=== PATIENT | female | born 1995 | race Caucasian/White ===

== ENCOUNTER → 2017-11-14 | Outpatient (CLI) | payer MEDICAID | LOC: HPND 13:20 | PROVIDERS: ATTEND Family Medicine | DX: O26.842 Uterine size-date discrepancy, second trimester (principal) | CPT/HCPCS: 76805 ==

== ENCOUNTER → 2017-12-19 | Outpatient (CLI) | payer MEDICAID | LOC: HPND 08:16 | PROVIDERS: ATTEND Family Medicine | DX: O26.842 Uterine size-date discrepancy, second trimester (principal); Z36.3 Encounter for antenatal screening for malformations | CPT/HCPCS: 76816 ==

== ENCOUNTER 2018-04-14 22:02 | Inpatient (IN) ==
[2018-04-14] MEDS ORDERED: Oxytocin 30 Units/500ml Premix 30 UNITS/500 ML BAG IV.SIG ONE (22:29)
[2018-04-14] MEDS ORDERED: Sodium Chlor 0.9% Inj 500 ML IV.SIG PRN (22:29)
[2018-04-14] MEDS ORDERED: Naloxone Inj 0.4 MG/ML Vial IV.PUSH PRN (22:29)
[2018-04-14] MEDS ORDERED: fentaNYL Citrate Inj 100 MCG/2 ML Ampul IV.PUSH PRN ×2 (22:29)
[2018-04-14] MEDS ORDERED: Sod Chloride 0.9% Inj 1,000 ML IV.CONT PRN (22:29)
[2018-04-14] MEDS ORDERED: Citric Acid/Sodium Citrate Liq 30 ML UDC PO SCH (22:30)
--- NOTE | 2018-04-14 22:51 | P.HPOB ---
History of Present Illness Primary Care Physician: NOT REQUIRED History of Present Illness: Patient is a 22-year-old at 36/3 presenting today for loss of fluids. She reports approximately 2 hours ago she went to sit on her bed, she had a large a clear gush of fluid from her vagina. Notes occasional intermittent mild abdominal pain every few minutes. She states she has had normal movement. Denies nausea, vomiting, fever, chills, abdominal pain, shortness of breath, changes in vision, headache, lightheadedness, dizziness, dysuria, hematuria, frequency, change in urine color/smell, change in bowel habits. No bloody discharge, abnormally colored or malodorous discharge. No other complaints today. Review of Systems Constitutional: Denies chills, Denies fatigue, Denies fever(s) Eyes: Denies blurry vision, Denies change in vision, Denies floaters Ears, Nose, Mouth, and Throat: Denies dizziness, Denies nose pain Cardiovascular: Reports leg swelling, Denies chest pain, Denies shortness of breath Respiratory: Denies chest congestion, Denies cough, Denies coughing up blood, Denies wheezing Gastrointestinal: Reports cramping, Denies black, tarry stools, Denies change in bowel habits, Denies change in stools, Denies loose stools, Denies vomiting Musculoskeletal: Reports back pain, Denies body aches, Denies joint pain, Denies muscle weakness Skin/Breast: Denies dry skin, Denies skin ulcer Neurologic: Denies abnormal movements, Denies abnormal speech, Denies dizziness , Denies fainting, Denies frequent falls, Denies numbness, Denies tingling Psychiatric: Denies anxiety, Denies confusion Endocrine: Denies fatigue, Denies flushing Hematologic/Lymphatic: Denies easy bleeding, Denies easy bruising Medications and Allergies Allergies Allergy/AdvReac Type Severity Reaction Status Date / Time Penicillins Allergy Hives Verified 04/14/18 22:29 Home Medications Medication Instructions Recorded Confirmed Type vit-iron fum-folic ac 1 tab PO DAILY 04/14/18 04/14/18 History [ Vitamin] Exam Vital signs: Vital Signs 04/14/18 22:26 04/14/18 22:35 04/14/18 22:40 Temperature Pulse Rate 96 H 95 H 94 H Respiratory Rate 18 Blood Pressure 121/75 04/14/18 22:42 Temperature 97.9 F Pulse Rate Respiratory Rate Blood Pressure Narrative: GENERAL: Well-nourished, well-developed patient. SKIN: Warm and dry. HEAD: Normocephalic and atraumatic. EYES: No scleral icterus. No injection or drainage. ENT: No nasal drainage noted. Mucous membranes pink. Airway patent. NECK: Supple, trachea midline. No JVD. CARDIOVASCULAR: Regular rate and rhythm without murmurs, gallops, or rubs. RESPIRATORY: Breath sounds equal bilaterally. No accessory muscle use. ABDOMEN/GI: Abdomen soft, non-tender, bowel sounds present, no rebound, no guarding Gravid to 36 weeks size Fundal Height: 36 cm GENITOURINARY: External Genitalia: intact and normal in appearance Dilatation: 2 Effacement: 60 Station: -2 Presentation: vertex Membranes: ruptured Uterine Contractions: ~5 minutes FHT's: Category: 1 Baseline: 140 Reactive: Yes Variability: Moderate Decels: None EXTREMITIES: No cyanosis or edema. BACK: Nontender without obvious deformity. No CVA tenderness. NEUROLOGICAL: Awake and alert. Motor and sensory grossly within normal limits. Five out of 5 muscle strength in all muscle groups. Normal speech. Results - Labs CBC & Chem 7: 04/14/18 23:10 Caprini VTE Risk Assessment Caprini VTE Risk Assessment: No/Low Risk (score <= 1) Caprini Risk Assessment Model: Point Value = 1 Point Value = 2 Point Value = 3 Point Value = 5 Age 41-60 Minor surgery BMI > 25 kg/m2 Swollen legs Varicose veins or History of unexplained or recurrent spontaneous Oral contraceptives or hormone replacement Sepsis (< 1 month) Serious lung disease, including pneumonia (< 1 month) Abnormal pulmonary function Acute myocardial infarction Congestive heart failure (< 1 month) History of inflammatory bowel disease Medical patient at bed rest Age 61-74 Arthroscopic surgery Major open surgery (> 45 min) Laparoscopic surgery (> 45 min) Malignancy Confined to bed (> 72 hours) Immobilizing plaster cast Central venous access Age >= 75 History of VTE Family history of VTE Factor V Leiden Prothrombin [id number] Lupus anticoagulant Anticardiolipin antibodies Elevated serum homocysteine Heparin-induced thrombocytopenia Other congenital or acquired thrombophilia Stroke (< 1 month) Elective arthroplasty Hip, pelvis, or leg fracture Acute spinal cord injury (< 1 month) Prophylaxis Regimen: Total Risk Factor Score Risk Level Prophylaxis Regimen 0-1 Low Early ambulation 2 Moderate Order ONE of the following: *Sequential Compression Device (SCD) *Heparin 5000 units SQ BID 3-4 Higher Order ONE of the following medications: *Heparin 5000 units SQ TID *Enoxaparin/Lovenox 40 mg SQ daily (WT < 150 kg, CrCl > 30 mL/min) *Enoxaparin/Lovenox 30 mg SQ daily (WT < 150 kg, CrCl > 10-29 mL/min) *Enoxaparin/Lovenox 30 mg SQ BID (WT < 150 kg, CrCl > 30 mL/min) AND/OR *Sequential Compression Device (SCD) 5 or more Highest Order ONE of the following medications: *Heparin 5000 units SQ TID (Preferred with Epidurals) *Enoxaparin/Lovenox 40 mg SQ daily (WT < 150 kg, CrCl > 30 mL/min) *Enoxaparin/Lovenox 30 mg SQ daily (WT < 150 kg, CrCl > 10-29 mL/min) *Enoxaparin/Lovenox 30 mg SQ BID (WT < 150 kg, CrCl > 30 mL/min) AND *Sequential Compression Device (SCD) Assessment and Plan - Diagnosis (1) Premature rupture of membranes (PROM), onset of labor within 24 hours, antepartum, Code(s): O42.019 - premature rupture of membranes, onset of labor within 24 hours of rupture, unspecified trimester Status: Acute (2) 36 weeks gestation of Code(s): Z3A.36 - 36 weeks gestation of Status: Acute - Plan 22-year-old at 36/3 presenting with ruptured membranes. -Follow up GBS status, possible antibiotics - tracing category 1, reassuring -Expectant management -Consider Pitocin augmentation d/w Dr. Stevenson
[2018-04-14 23:53] LABS: Baso % (Auto) 0.4 % (0.0-2.0); Eos # (Auto) 0.2 th/mm3 (0.0-0.4); Eos % (Auto) 1.3 % (0.0-4.0); Hematocrit 27.4 % (35.0-46.0); Hemoglobin 9.5 gm/dL (11.6-15.3); Lymph % (Auto) 15.7 % (9.0-44.0); Mean Corpuscular HGB Conc 34.8 % (32.0-36.0); Mean Corpuscular Hemoglobin 31.6 pg (27.0-34.0); Mean Corpuscular Volume 90.8 fL (80.0-100.0); Mean Platelet Volume 8.5 fL (7.0-11.0); Mono # (Auto) 1.2 th/mm3 (0.0-0.9); Mono % (Auto) 9.4 % (0.0-8.0); Neut # (Auto) 9.4 th/mm3 (1.8-7.7); Neut % (Auto) 73.2 % (16.0-70.0); Platelet Count 236 th/mm3 (150-450); Red Blood Count 3.02 mil/mm3 (4.00-5.30); Red Cell Distribution Width 13.5 % (11.6-17.2); White Blood Count 12.8 th/mm3 (4.0-11.0)
[2018-04-15] LABS: Amorphous Sediment,Urine Rare /hpf; Bilirubin,Urine Negative (Negative); Calcium Oxalate Crystals,Urine Rare /hpf; Clarity,Urine Hazy (Clear); Color,Urine Yellow (Yellw/Straw); Glucose,Urine (UA) 50 mg/dL (Negative); Leukocyte Esterase,Urine Negative (Negative); Mucus,Urine Few /lpf (Occasional); Nitrite,Urine Negative (Negative); Specific Gravity,Urine 1.017 (1.002-1.035); Squamous Epithelial Cell,Urine 1 /hpf (0-5)
[2018-04-15 00:03] LABS: Amphetamine Urine With Conf Neg (Neg); Benzodiazepine Urine With Conf Neg (Neg)
[2018-04-15] MEDS ORDERED: Oxytocin 30 Units/500ml Premix 30 UNITS/500 ML BAG IV.SIG PRN (03:22)
--- NOTE | 2018-04-15 03:28 | P.OBLABOR ---
Subjective Interval history: Patient resting comfortably. Reports increase in frequency and intensity of contractions. Occurring every 4-6 minutes. No acute complaints Objective Vital Signs: Vital Signs - 8 hr 04/14/18 22:26 04/14/18 22:35 04/14/18 22:40 Temperature Pulse Rate 96 H 95 H 94 H Respiratory Rate 18 Blood Pressure 121/75 04/14/18 22:42 04/14/18 22:50 04/14/18 23:00 Temperature 97.9 F Pulse Rate 102 H 96 H Respiratory Rate Blood Pressure 04/14/18 23:10 04/14/18 23:30 04/14/18 23:45 Temperature Pulse Rate 90 89 86 Respiratory Rate Blood Pressure 04/14/18 23:55 04/15/18 00:00 04/15/18 00:10 Temperature Pulse Rate 86 88 87 Respiratory Rate Blood Pressure 04/15/18 00:25 04/15/18 00:30 04/15/18 01:00 Temperature Pulse Rate 94 H 84 86 Respiratory Rate Blood Pressure 04/15/18 01:05 04/15/18 01:12 04/15/18 01:13 Temperature 98.0 F Pulse Rate 89 81 Respiratory Rate 16 Blood Pressure 125/66 04/15/18 01:35 04/15/18 01:40 04/15/18 01:45 Temperature Pulse Rate 80 91 H 82 Respiratory Rate Blood Pressure 04/15/18 01:50 04/15/18 02:00 04/15/18 02:20 Temperature Pulse Rate 90 84 80 Respiratory Rate Blood Pressure 04/15/18 02:25 04/15/18 02:30 04/15/18 02:35 Temperature Pulse Rate 85 99 H 82 Respiratory Rate Blood Pressure 04/15/18 02:45 04/15/18 03:00 04/15/18 03:05 Temperature Pulse Rate 90 85 83 Respiratory Rate Blood Pressure 04/15/18 03:10 Temperature Pulse Rate 87 Respiratory Rate Blood Pressure Objective: Pelvic Exam: Cervix: Posterior Dilatation: 2 Effacement: 70 Station: -2 Presentation: vertex Membranes: ruptured Uterine Contractions: regular 4-6 minutes FHT's: Category: 1 Baseline: 135 Reactive: yes Variability: moderate Decels: none Assessment and Plan - Diagnosis (1) Premature rupture of membranes (PROM), onset of labor within 24 hours, antepartum, Code(s): O42.019 - premature rupture of membranes, onset of labor within 24 hours of rupture, unspecified trimester Status: Acute (2) 36 weeks gestation of Code(s): Z3A.36 - 36 weeks gestation of Status: Acute - Plan 22-year-old at 36/3 presenting with ruptured membranes. GBS negative - tracing category 1, reassuring -Expectant management -Discussed Pitocin augmentation, patient wishes to wait for now, however is agreeable to augmentation if no significant change is made at the next check
[2018-04-15] MEDS ORDERED: fentaNYL 2MCG-Bupiv 0.125% Epi 150 ML EPIDURAL ONE (06:01)
[2018-04-15] MEDS ORDERED: Bupivacaine PF 0.25% Inj 10 ML Vial ONE (06:13)
[2018-04-15] MEDS ORDERED: Lidocaaine 1.5%/Epinephrine 1:200,000 PF Inj 5 ML Amp ONE (06:14)
[2018-04-15] MEDS ORDERED: Lidocaine PF 1% Inj 5 ML Vial ONE (06:14)
--- NOTE | 2018-04-15 06:31 | P.OBLABOR ---
Objective Vital Signs: Vital Signs - 8 hr 04/14/18 22:35 04/14/18 22:40 04/14/18 22:42 Temperature 97.9 F Pulse Rate 95 H 94 H Respiratory Rate Blood Pressure 04/14/18 22:50 04/14/18 23:00 04/14/18 23:10 Temperature Pulse Rate 102 H 96 H 90 Respiratory Rate Blood Pressure 04/14/18 23:30 04/14/18 23:45 04/14/18 23:55 Temperature Pulse Rate 89 86 86 Respiratory Rate Blood Pressure 04/15/18 00:00 04/15/18 00:10 04/15/18 00:25 Temperature Pulse Rate 88 87 94 H Respiratory Rate Blood Pressure 04/15/18 00:30 04/15/18 01:00 04/15/18 01:05 Temperature Pulse Rate 84 86 89 Respiratory Rate Blood Pressure 04/15/18 01:12 04/15/18 01:13 04/15/18 01:35 Temperature 98.0 F Pulse Rate 81 80 Respiratory Rate 16 Blood Pressure 125/66 04/15/18 01:40 04/15/18 01:45 04/15/18 01:50 Temperature Pulse Rate 91 H 82 90 Respiratory Rate Blood Pressure 04/15/18 02:00 04/15/18 02:20 04/15/18 02:25 Temperature Pulse Rate 84 80 85 Respiratory Rate Blood Pressure 04/15/18 02:30 04/15/18 02:35 04/15/18 02:45 Temperature Pulse Rate 99 H 82 90 Respiratory Rate Blood Pressure 04/15/18 03:00 04/15/18 03:05 04/15/18 03:10 Temperature Pulse Rate 85 83 87 Respiratory Rate Blood Pressure 04/15/18 03:25 04/15/18 03:30 04/15/18 03:35 Temperature Pulse Rate 99 H 80 81 Respiratory Rate Blood Pressure 04/15/18 03:40 04/15/18 03:46 04/15/18 03:50 Temperature 98.9 F Pulse Rate 85 81 84 Respiratory Rate 18 Blood Pressure 121/79 04/15/18 04:00 04/15/18 04:05 04/15/18 04:10 Temperature Pulse Rate 89 79 79 Respiratory Rate Blood Pressure 04/15/18 04:20 04/15/18 04:25 04/15/18 04:50 Temperature Pulse Rate 83 83 97 H Respiratory Rate Blood Pressure 04/15/18 05:00 04/15/18 05:02 04/15/18 05:05 Temperature Pulse Rate 82 78 81 Respiratory Rate Blood Pressure 128/62 04/15/18 05:10 04/15/18 05:20 04/15/18 05:35 Temperature Pulse Rate 87 82 79 Respiratory Rate Blood Pressure 04/15/18 05:55 04/15/18 06:00 04/15/18 06:10 Temperature Pulse Rate 80 86 85 Respiratory Rate Blood Pressure 04/15/18 06:15 04/15/18 06:18 04/15/18 06:20 Temperature 98.8 F Pulse Rate 100 H 96 H Respiratory Rate 16 Blood Pressure 125/68 04/15/18 06:21 04/15/18 06:25 Temperature Pulse Rate 97 H 93 H Respiratory Rate Blood Pressure 132/66 121/68 Objective: Pelvic Exam: Cervix: Soft Dilatation: 5 Effacement: 95 Station: 0 Presentation: Vertex Membranes: AROM of forebag Uterine Contractions: Present FHT's: Category: 1 Weeks Gestation: 36 Patient Started Active Labor: Yes Medical Induction of Labor: No Artificial Rupture of Membrane: Yes (Forebag) Assessment and Plan - Plan 22-year-old at 36/3 presenting with ruptured membranes. GBS negative - tracing category 1, reassuring -Expectant management -Discussed Pitocin augmentation, patient wishes to wait for now, however is agreeable to augmentation if no significant change is made at the next check
[2018-04-15] MEDS ORDERED: fentaNYL Citrate Inj 100 MCG/2 ML Ampul EPIDURAL ONE (06:45)
[2018-04-15] MEDS ORDERED: fentaNYL 2MCG-Bupiv 0.125% Epi 150 ML EPIDURAL PRN (06:45)
--- NOTE | 2018-04-15 08:53 | P.OBGPN ---
Labor progress note: RN contacted MD about heart rate strip-category 2 mostly however category 1-uterine hypertonus noted plan oxytocin off, subcu terbutaline. Continue monitor patient is now 7-8 cm head is well applied
[2018-04-15] MEDS ORDERED: Influenza (Quadrivalent) Vaccine 0.5 ML Syringe IM ONE (09:00)
[2018-04-15] MEDS ORDERED: Lidocaine 1% Inj 50 ML Vial ONE (10:22)
--- NOTE | 2018-04-15 10:24 | P.OBLABOR ---
Subjective Interval history: Patient resting in bed comfortably. Endorses continued contractions, less intense than when Pitocin was running. No complaints at this time. Objective Vital Signs: Vital Signs - 8 hr 04/15/18 02:20 04/15/18 02:25 04/15/18 02:30 Temperature Pulse Rate 80 85 99 H Respiratory Rate Blood Pressure 04/15/18 02:35 04/15/18 02:45 04/15/18 03:00 Temperature Pulse Rate 82 90 85 Respiratory Rate Blood Pressure 04/15/18 03:05 04/15/18 03:10 04/15/18 03:25 Temperature Pulse Rate 83 87 99 H Respiratory Rate Blood Pressure 04/15/18 03:30 04/15/18 03:35 04/15/18 03:40 Temperature Pulse Rate 80 81 85 Respiratory Rate Blood Pressure 04/15/18 03:46 04/15/18 03:50 04/15/18 04:00 Temperature 98.9 F Pulse Rate 81 84 89 Respiratory Rate 18 Blood Pressure 121/79 04/15/18 04:05 04/15/18 04:10 04/15/18 04:20 Temperature Pulse Rate 79 79 83 Respiratory Rate Blood Pressure 04/15/18 04:25 04/15/18 04:50 04/15/18 05:00 Temperature Pulse Rate 83 97 H 82 Respiratory Rate Blood Pressure 04/15/18 05:02 04/15/18 05:05 04/15/18 05:10 Temperature Pulse Rate 78 81 87 Respiratory Rate Blood Pressure 128/62 04/15/18 05:20 04/15/18 05:35 04/15/18 05:55 Temperature Pulse Rate 82 79 80 Respiratory Rate Blood Pressure 04/15/18 06:00 04/15/18 06:10 04/15/18 06:15 Temperature Pulse Rate 86 85 100 H Respiratory Rate Blood Pressure 125/68 04/15/18 06:18 04/15/18 06:20 04/15/18 06:21 Temperature 98.8 F Pulse Rate 96 H 97 H Respiratory Rate 16 Blood Pressure 132/66 04/15/18 06:25 04/15/18 06:30 04/15/18 06:35 Temperature Pulse Rate 93 H 92 H 91 H Respiratory Rate Blood Pressure 121/68 119/70 121/67 04/15/18 06:37 04/15/18 06:40 04/15/18 06:41 Temperature Pulse Rate 84 87 80 Respiratory Rate Blood Pressure 120/52 L 120/53 L 04/15/18 06:50 04/15/18 06:55 04/15/18 07:00 Temperature Pulse Rate 89 97 H 92 H Respiratory Rate Blood Pressure 122/69 04/15/18 07:10 04/15/18 07:25 04/15/18 07:26 Temperature Pulse Rate 79 80 Respiratory Rate 17 Blood Pressure 117/62 128/68 04/15/18 07:30 04/15/18 07:35 04/15/18 07:40 Temperature Pulse Rate 98 H 86 84 Respiratory Rate Blood Pressure 132/67 04/15/18 07:55 04/15/18 08:00 04/15/18 08:05 Temperature Pulse Rate 88 81 85 Respiratory Rate Blood Pressure 120/59 L 04/15/18 08:06 04/15/18 08:10 04/15/18 08:15 Temperature Pulse Rate 80 86 Respiratory Rate 18 Blood Pressure 108/54 L 04/15/18 08:25 04/15/18 08:30 04/15/18 08:40 Temperature 98.3 F Pulse Rate 87 87 84 Respiratory Rate Blood Pressure 117/55 L 04/15/18 08:45 04/15/18 08:46 04/15/18 08:55 Temperature Pulse Rate 85 89 81 Respiratory Rate Blood Pressure 121/53 L 04/15/18 09:11 04/15/18 09:20 04/15/18 09:25 Temperature Pulse Rate 88 104 H 113 H Respiratory Rate 17 Blood Pressure 116/54 L 125/52 L 04/15/18 09:30 04/15/18 09:35 04/15/18 09:55 Temperature Pulse Rate 112 H 108 H 112 H Respiratory Rate Blood Pressure 119/55 L 127/48 L 04/15/18 10:00 04/15/18 10:10 04/15/18 10:15 Temperature Pulse Rate 107 H 105 H 101 H Respiratory Rate Blood Pressure 113/45 L 116/57 L Objective: Pelvic Exam: Cervix: posterior Dilatation: 9-10 Effacement: 100 Station: 0 Presentation: vertex Membranes: ruptured FHT's: Category: 1 Baseline: 150 Reactive: yes Variability: moderate Decels: none Assessment and Plan - Diagnosis (1) Premature rupture of membranes (PROM), onset of labor within 24 hours, antepartum, Code(s): O42.019 - premature rupture of membranes, onset of labor within 24 hours of rupture, unspecified trimester Status: Acute (2) 36 weeks gestation of Code(s): Z3A.36 - 36 weeks gestation of Status: Acute - Plan 22-year-old at 36/3 presenting with ruptured membranes. GBS negative. Pitocin held and terbutaline given following hypertonia - tracing category 1, reassuring -Expectant management -Consider reintroduction of Pitocin
--- NOTE | 2018-04-15 14:38 | P.OBDELI ---
Weeks Gestation: 36 Medical Induction of Labor: No Artificial Rupture of Membrane: No Anesthesia: Epidural Episiotomy: none Vaginal Delivery: Normal, Spontaneous Presentation: Occiput anterior Nuchal Cord: None Delayed Cord Clamping (45 sec): Yes Placenta: Spontaneous delivery, Intact Laceration: 2 deg (midline second degree) Repair: Vicryl running Infant: Male Infant Male A Delivery Date: 04/15/18 Delivery Time: 14:17 score (1 min): 8 score (5 min): 9 Attestation Attestation: The exam, history, and the medical decision-making described in the above note were completed with the assistance of the resident physician. I reviewed and agree with the findings presented. I attest that I had a [id number] encounter with the patient on the same day, and personally performed and documented my assessment and findings in the medical record.
[2018-04-15] MEDS ORDERED: Acetaminophen 325 MG Tablet PO PRN (14:39)
[2018-04-15] MEDS ORDERED: Oxytocin 30 Units/500ml Premix 30 UNITS/500 ML BAG IV.CONT PRN (14:39)
[2018-04-15] MEDS ORDERED: Naloxone Inj 0.4 MG/ML Vial IV.PUSH PRN (14:39)
[2018-04-15] MEDS ORDERED: Benzocaine 20% Top Spray 60 ML Can TOPICAL PRN (14:39)
[2018-04-15] MEDS ORDERED: Bisacodyl 10 MG Supp RECTAL PRN (14:39)
[2018-04-15] MEDS ORDERED: Witch Hazel 50%/Glyderin 12.5% 40 Pad Jar RECTAL PRN (14:39)
[2018-04-15] MEDS ORDERED: Diphtheria/Tetanus/Pertussis Vaccine Inj 0.5 ML Syringe IM ONE (16:00)
[2018-04-15] MEDS ORDERED: Measles/Mumps/Rubella Vaccine Inj 0.5 ML Vial SQ ONE (16:00)
[2018-04-15] MEDS ORDERED: Zolpidem Tartrate 5 MG Tablet PO PRN (21:00)
[2018-04-16] MEDS: Senna/Docusate Sodium 8.6/50 MG Tablet PO SCH ×4 (05:18→21:17)
--- NOTE | 2018-04-16 08:24 | P.PNOB ---
Subjective Post day: 1 Interval history: day # 1. AFVSS overnight. Pain well-controlled. Decreased lochia. Denies dysuria. No breast tenderness. She is feeding the baby via bottle. Appetite good. No nausea or vomiting. + flatus. no bowel movement. Ambulating well. Denies calf pain, shortness of breath, or cough. Otherwise, she is doing well this morning and has no other complaints. Objective Vital Signs/I&O: Vital Signs 04/15/18 08:25 04/15/18 08:30 04/15/18 08:40 Temperature 98.3 F Pulse Rate 87 87 84 Respiratory Rate Blood Pressure 117/55 L 04/15/18 08:45 04/15/18 08:46 04/15/18 08:55 Temperature Pulse Rate 85 89 81 Respiratory Rate Blood Pressure 121/53 L 04/15/18 09:11 04/15/18 09:20 04/15/18 09:25 Temperature Pulse Rate 88 104 H 113 H Respiratory Rate 17 Blood Pressure 116/54 L 125/52 L 04/15/18 09:30 04/15/18 09:35 04/15/18 09:55 Temperature Pulse Rate 112 H 108 H 112 H Respiratory Rate Blood Pressure 119/55 L 127/48 L 04/15/18 10:00 04/15/18 10:10 04/15/18 10:15 Temperature Pulse Rate 107 H 105 H 101 H Respiratory Rate Blood Pressure 113/45 L 116/57 L 04/15/18 10:30 04/15/18 10:35 04/15/18 10:40 Temperature Pulse Rate 115 H 107 H 108 H Respiratory Rate 16 Blood Pressure 118/55 L 04/15/18 10:50 04/15/18 10:55 04/15/18 11:05 Temperature Pulse Rate 113 H 112 H 102 H Respiratory Rate Blood Pressure 115/58 L 119/58 L 04/15/18 11:25 04/15/18 11:27 04/15/18 11:30 Temperature Pulse Rate 99 H 103 H Respiratory Rate 17 Blood Pressure 121/57 L 04/15/18 11:35 04/15/18 11:40 04/15/18 11:59 Temperature Pulse Rate 105 H 96 H Respiratory Rate 18 Blood Pressure 99/52 L 116/49 L 04/15/18 12:00 04/15/18 12:05 04/15/18 12:10 Temperature 98.8 F Pulse Rate 93 H 90 97 H Respiratory Rate Blood Pressure 122/48 L 04/15/18 12:40 04/15/18 12:50 04/15/18 12:55 Temperature Pulse Rate 98 H 101 H 100 H Respiratory Rate Blood Pressure 103/50 L 107/59 L 04/15/18 13:00 04/15/18 13:05 04/15/18 13:10 Temperature Pulse Rate 99 H 94 H 96 H Respiratory Rate 17 Blood Pressure 116/61 04/15/18 13:14 04/15/18 13:20 04/15/18 13:45 Temperature Pulse Rate 96 H 105 H Respiratory Rate 18 Blood Pressure 111/64 117/62 04/15/18 14:10 04/15/18 14:30 04/15/18 14:40 Temperature Pulse Rate 100 H 105 H 93 H Respiratory Rate 18 Blood Pressure 112/54 L 110/52 L 04/15/18 15:00 04/15/18 15:16 04/15/18 15:30 Temperature Pulse Rate 94 H 96 H 82 Respiratory Rate 17 Blood Pressure 109/59 L 113/57 L 113/50 L 04/15/18 15:45 04/15/18 16:00 04/15/18 17:00 Temperature 98.5 F Pulse Rate 86 95 H Respiratory Rate 20 22 Blood Pressure 107/49 L 111/62 04/15/18 20:00 04/16/18 08:00 Temperature 98.0 F 97.9 F Pulse Rate 62 88 Respiratory Rate 18 16 Blood Pressure 101/59 L 108/69 Intake & Output 04/15/18 04/16/18 04/16/18 18:59 06:59 18:59 Intake Total 1000 / 1000 Balance 1000 / 1000 Intake: IV 1000 / 1000 LR 1000 mL Inj 1,000 ML @ 125 1000 / 1000 mls/hr IV.CONT .Q8H [facility] [place] Rx#: [id number] Result Diagrams: 04/14/18 23:10 Objective Remarks: GENERAL: Well-nourished, well-developed patient. CARDIOVASCULAR: Regular rate and rhythm without murmurs, gallops, or rubs. RESPIRATORY: Breath sounds equal bilaterally. No accessory muscle use. ABDOMEN/GI: Abdomen soft, non-tender. Fundus: Firm, non-tender at umbilicus. GENITOURINARY: Light to moderate bleeding. EXTREMITIES: No cyanosis or edema, non-tender, without signs of DVT. Medications and IVs: Active Medications Acetaminophen (Tylenol) 650 mg PO Q4H PRN PRN Reason: PAIN SCALE 1 TO 2 Al Hydroxide/Mg Hydroxide (Milk Of Magnesia Liq) 30 ml PO Q12H PRN PRN Reason: Mild Constipation Benzocaine (Americaine 20% [place]) 1 spray TOPICAL Q4H PRN PRN Reason: For Perineum Discomfort Last Admin: 04/15/18 17:20 Dose: 1 spray Bisacodyl (Dulcolax Supp) 10 mg RECTAL DAILY PRN PRN Reason: SEVERE CONSITIPATION Oxytocin (Pitocin 30 Units/Ns 500 Ml Premix) 30 units in 500 mls @ 100 mls/hr IV.CONT UNSCH PRN PRN Reason: Heavy bleeding Ibuprofen (Motrin) 800 mg PO Q8H PRN PRN Reason: For Cramping Last Admin: 04/16/18 07:30 Dose: 800 mg Lactulose (Lactulose Liq) 30 ml PO DAILY PRN PRN Reason: SEVERE CONSITIPATION Naloxone HCl (Narcan Inj) 0.1 mg IV.PUSH Q2M PRN PRN Reason: for opiate reversal Ondansetron HCl (Zofran Odt) 4 mg PO Q6H PRN PRN Reason: NAUSEA OR VOMITING Senna/Docusate Sodium (Nat-Colace) 1 tab PO BID [facility] [place] Last Admin: 04/16/18 07:30 Dose: 1 tab Sennosides (Senokot) 17.2 mg PO Q12H PRN PRN Reason: Moderate Constipation Sodium Chloride (Ns Flush) 2 ml IV.FLUSH BID [facility] [place] Last Admin: 04/16/18 04:57 Dose: Not Given Sodium Chloride (Ns Flush) 2 ml IV.FLUSH PRN PRN PRN Reason: FLUSH AFTER USING IV ACCESS Witch Lucy/Glycerin (Tucks Pads) 1 applicatio RECTAL QID PRN PRN Reason: HEMORRHOIDS Last Admin: 04/15/18 17:19 Dose: 1 applicatio Zolpidem Tartrate (Ambien) 5 mg PO HS PRN PRN Reason: SLEEP Assessment and Plan - Diagnosis (1) Premature rupture of membranes (PROM), onset of labor within 24 hours, antepartum, Code(s): O42.019 - premature rupture of membranes, onset of labor within 24 hours of rupture, unspecified trimester Status: Acute (2) 36 weeks gestation of Code(s): Z3A.36 - 36 weeks gestation of Status: Acute - Plan 22 y/o who is PPD# 1 s/p . -Continue routine care. -Tylenol and Motrin PRN pain. -Encouraged OOB. Advised pelvic rest for 6 wks. -Will need a f/u appt. within 6 wks. -Re: ctrl, she would like to consider her options. -D/c tomorrow. wdw Dr. Duggan Attestation Attestation: The exam, history, and the medical decision-making described in the above note were completed with the assistance of the resident physician. I reviewed and agree with the findings presented. I attest that I had a [id number] encounter with the patient on the same day, and personally performed and documented my assessment and findings in the medical record.
[2018-04-17] MEDS ORDERED: Ibuprofen 400 MG Tablet PO PRN (07:45)
[2018-04-17] MEDS: Senna/Docusate Sodium 8.6/50 MG Tablet PO SCH (08:30)
--- NOTE | 2018-04-17 08:55 | P.PNOB ---
Subjective Post day: 2 Interval history: day #2 AFVSS overnight. Decreased lochia. Denies dysuria. No breast pain. Appetite good. No nausea or vomiting. Ambulating well. Denies calf pain or shortness of breath. Otherwise, she is doing well this morning and has no other complaints. Objective Vital Signs/I&O: Vital Signs 04/16/18 20:00 Temperature 98.3 F Pulse Rate 75 Respiratory Rate 18 Blood Pressure 116/61 Result Diagrams: 04/14/18 23:10 Objective Remarks: GENERAL: Well-nourished, well-developed patient. CARDIOVASCULAR: Regular rate and rhythm without murmurs, gallops, or rubs. RESPIRATORY: Breath sounds equal bilaterally. No accessory muscle use. ABDOMEN/GI: Abdomen soft, non-tender. Fundus: Firm, non-tender at umbilicus. GENITOURINARY: Light to moderate bleeding. EXTREMITIES: No cyanosis or edema, non-tender, without signs of DVT. Medications and IVs: Active Medications Acetaminophen (Tylenol) 650 mg PO Q4H PRN PRN Reason: PAIN SCALE 1 TO 2 Al Hydroxide/Mg Hydroxide (Milk Of Magnesia Liq) 30 ml PO Q12H PRN PRN Reason: Mild Constipation Benzocaine (Americaine 20% [place]) 1 spray TOPICAL Q4H PRN PRN Reason: For Perineum Discomfort Last Admin: 04/15/18 17:20 Dose: 1 spray Bisacodyl (Dulcolax Supp) 10 mg RECTAL DAILY PRN PRN Reason: SEVERE CONSITIPATION Oxytocin (Pitocin 30 Units/Ns 500 Ml Premix) 30 units in 500 mls @ 100 mls/hr IV.CONT UNSCH PRN PRN Reason: Heavy bleeding Ibuprofen (Motrin) 800 mg PO Q8H PRN PRN Reason: For Cramping Last Admin: 04/17/18 08:31 Dose: 800 mg Lactulose (Lactulose Liq) 30 ml PO DAILY PRN PRN Reason: SEVERE CONSITIPATION Naloxone HCl (Narcan Inj) 0.1 mg IV.PUSH Q2M PRN PRN Reason: for opiate reversal Ondansetron HCl (Zofran Odt) 4 mg PO Q6H PRN PRN Reason: NAUSEA OR VOMITING Senna/Docusate Sodium (Nat-Colace) 1 tab PO BID NOÉ Last Admin: 04/17/18 08:30 Dose: 1 tab Sennosides (Senokot) 17.2 mg PO Q12H PRN PRN Reason: Moderate Constipation Sodium Chloride (Ns Flush) 2 ml IV.FLUSH BID [facility] Last Admin: 04/16/18 11:20 Dose: Not Given Sodium Chloride (Ns Flush) 2 ml IV.FLUSH PRN PRN PRN Reason: FLUSH AFTER USING IV ACCESS Witch Lucy/Glycerin (Tucks Pads) 1 applicatio RECTAL QID PRN PRN Reason: HEMORRHOIDS Last Admin: 04/15/18 17:19 Dose: 1 applicatio Zolpidem Tartrate (Ambien) 5 mg PO HS PRN PRN Reason: SLEEP Assessment and Plan - Diagnosis (1) Premature rupture of membranes (PROM), onset of labor within 24 hours, antepartum, Code(s): O42.019 - premature rupture of membranes, onset of labor within 24 hours of rupture, unspecified trimester Status: Acute (2) 36 weeks gestation of Code(s): Z3A.36 - 36 weeks gestation of Status: Acute - Plan 22 y/o female who is PPD#2 s/p vaginal delivery. -Continue routine care. -Motrin PRN pain. -Encouraged OOB. Advised pelvic rest for 6 wks. -Re: ctrl, she would like to speak with her primary care about OCPs. -D/c likely today sonya Stevenson
[2018-04-17 09:24] VITALS: BP 109/66; PULSE 54; RESP 16
[2018-04-17 09:25] VITALS: TEMP 98
== END 2018-04-17 12:50 | disposition home or self-care (01) ==
LOC: HOBED 22:02 → H2E 23:01 → H1EA 04-15 16:15
PROVIDERS: ADMIT Obstetrics & Gynecology; ATTEND Obstetrics & Gynecology